=== PATIENT | female | born 1965 | race Hispanic/Latino ===

== ENCOUNTER 2017-03-30 12:27 | Outpatient (CLI) | payer BC ==
--- NOTE | 2017-03-30 16:15 | CT ---
CT SINUSES: 03/30/17 Multiple axial tomograms obtained through the sinuses with multiplanar reconstruction. HISTORY: Sinus headache. Sinusitis. Frontal air cells are clear and well aerated. Ethmoids are also well aerated and clear of mucosal dis ease. Prominent juan bullosa involving the left middle turbinate. Mild nasal septal deviation to th e left with small septal spur projecting in the left middle meatus. Maxillary sinuses are well aerated and clear with no mucosal edema. The sphenoid air cells are clear. IMPRESSION: No evidence of significant paranasal mucosal disease. POS: [facility]
== END 2017-03-30 12:28 | disposition home or self-care (01) ==
LOC: CT 12:27
PROVIDERS: ATTEND Family Medicine
DX: J01.90 Acute sinusitis, unspecified (principal); R51 Headache

== ENCOUNTER 2022-08-14 09:51 | Outpatient (CLI) | payer BC | END 2022-08-14 09:52 | disposition home or self-care (01) | LOC: BICMAMMO 09:51 | PROVIDERS: ATTEND Family Medicine | DX: Z12.31 Encounter for screening mammogram for malignant neoplasm of breast (principal) | CPT/HCPCS: 77063; 77067 ==